=== PATIENT | female | born 1960 ===

== ENCOUNTER 2016-11-05 06:22 | Inpatient (IN) | payer BC, OTHER ==
[2016-10-30 15:00] VITALS: BMI 30.7
[2016-11-05] MEDS ORDERED: Lactated Ringer's 1,000 ML IV ONE ×2 (07:18→08:30)
[2016-11-05] MEDS ORDERED: Bupivacaine 0.25%-Epinephrine 1:200,000 (30 ml) Inj IJ ONE (08:50)
--- NOTE | 2016-11-05 10:35 | PCM.SURG1 ---
<Ashley Slaughter - Last Filed: 11/05/16 11:11> Surgeon's Initial Post Op Note - Surgeon's Notes Income Tax Advisor: cj romano md, Hailey Sukhjinder PGY1 <James Beltran - Last Filed: 11/05/16 17:34> Surgeon's Initial Post Op Note - Surgeon's Notes Surgeon: james beltran md Income Tax Advisor: cj romano md Type of Anesthesia: General Endo, Local Pre-Operative Diagnosis: Chronic pelvic pain. Proapse uterus. adnexal mass. fibroid uterus. Urinary incontinence Operative Findings: Detailed Operative Report. This is a 56 years old female with complex adnexal mass, long-standing history of uterine prolapse, urinary incontinence, chronic pelvic pain, associated fibroid uterus. The patient completed an extensive preoperative workup, which included an ultrasound, as well as a pap smear and an endometrial biopsy, chemistry and hematology studies. The patient reported these symptoms and problems as debilitating, and adversely affecting her quality of life. Following a period of failed conservative management, and patient decision was made to proceed with a more invasive approach to address the above noted problems. A decision was finally made to proceed with a total robotic assisted hysterectomy, bilateral salpingoophorectomy, excision of adnexal mass as well as vaginal vault suspension. A detailed description of this robotic procedure was given to the patient, all risks and benefits of the surgical modality was reviewed, printed material was also given to the patient regarding robotic surgery. The patient fully understood all the risks and benefits and elected to proceed with this proposed procedure. After proper consent was obtained from the patient was taken to the operating room, proper patient identification was completed. She was placed in dorsal lithotomy position; general anesthesia was induced without difficulty. Her legs were placed in adjustable Simba stirrups. Careful attention was placed not to over-flex or over-rotate the lower extremities at the hip or the knee joints. She was prepped and draped appropriately for robotic assisted hysterectomy, colpopexy and rectopexy. Seaman catheter was inserted under sterile conditions. A weighted speculum was placed in the vagina, anterior lip of cervix was grasped with a tenaculum, and a V-care uterine manipulator was inserted through the cervix and secured. The weighted speculum and tenaculum were removed from the patient's vagina and attention was turned to the patient's abdomen. Local anesthetic solutions of 0.25% Marcaine with epinephrine were utilized to infiltrate the skin prior to all abdominal skin incisions. A total of 15 mL of 0.25% Marcaine was utilized throughout the procedure. While tenting the abdominal wall, a Veres needle was inserted through the umbilicus and a pneumoperitoneum was obtained. Approximately at the umbilical fold, in the midline, a .08 cm incision was made with a scalpel and a trocar and sleeve were introduced. A robotic camera was inserted and an initial survey of the patient's abdomen revealed a large complex cystic mass. Anteverted prolapsed fibroid uterus moderate in size, Both ovaries appeared severely adherent to the pelvic sidewalls with distorted and adhering fallopian tubes. Extensive peritoneal and bowel adhesions was noted, likely from prior surgeries or previous intra-abdominal infections. The patient was placed in Trendelenburg position ready for a da Stanislaw robotic system to be docked. 3 robotic ports were utilized for this procedure. The first robotic port was placed on the patient's right side approximately 8 cm left lateral to the camera port, the second robotic port was placed 8 cm right lateral to the camera port and the third robotic port was placed approx. 8 cm lateral the second port and approximately 3 cm cephalic to the left superior iliac crest. All incisions were approximately 8 mm in length. An social media assistant port was placed 8 cm left lateral to the first robotic port. For the social media assistant and camera ports we utilized the Versa step trocar system. All trocars were inserted under direct visualization. The placement of the trocars was all accomplished under careful and meticulous placement under direct visualization. Following the placement of all trocars, the da Stanislaw robotic system was docked in a parallel fashion without difficulty. The following instruments were utilized for this procedure: the PK sealing and cautery device, a monopolar davonte and finally a ProGrasp. Meticulous and careful lysis of adhesions as well as enterolysis was accomplished utilizing the monopolar davonte and bipolar device. Following meticulous and careful dissection into the pelvic sidewall, both ureters were explored and visualized, peristalsis bilaterally. Prior to the hysterectomy it was necessary to address the adnexal mass. Pelvic washing was completed and sent to pathology. Meticulous sharp and blunt dissection isolated the pelvic mass intact and it was a nucleated without puncturing it without draining it into the pelvic cavity. The mass was placed in the abdominal cavity to be extracted following the hysterectomy. On the patient's right side, the IP and the round ligaments were identified cauterized and transected, the broad ligament was divided all the way down to the utero cervical junction bladder flap was then created by transecting the visceroperitoneum over the bladder reflection. In a similar fashion, the left round ligament, IP ligament and broad ligament were cauterized sealed and transected, taken down to the level of the cervical uterine junction. Uterine vessels on both sides were sealed and transected. The Uterosacral ligaments were sealed and transected. The monopolar davonte and PK were utilized to complete the colpotomy incision around the care vaginal ring. Excellent hemostasis was noted. The uterus, cervix, ovaries and fallopian tubes were delivered transvaginal through the colpotomy incision and sent to pathology for permanent analysis. Lastly, the pelvic mass was placed in an Endo Catch and removed via the vaginal colpotomy incision intact and sent to pathology. The colpotomy incision was closed with 2-0 v LOC in a continuous fashion with excellent hemostasis. The vaginal vault suspension was achieved by suspending the vaginal cuff to the base of the uterosacral ligaments bilaterally. For uterosacral ligament suspension portion of the procedure, the ureters were once again identified to avoid possible compromise or kinking while suspending the vaginal vault. A 2-0 permanent suture material ([place]-Louis) was utilized to suspend the uterosacral ligaments from the base to the vaginal vault cuff incision including both anterior and posterior aspect of the colpotomy incision. The abdomen was throughout irrigated and cleared of all clots and debris. FloSeal as well as Interceed was applied to the incision sites. Excellent hemostasis was again noted. All robotic and laparoscopic instruments removed under direct visualization. The robotic arms were undocked, and a da Stanislaw robotic system was wheeled away from the patient's bedside. Both social media assistant and camera ports were closed at the fascial layer utilizing a 2-0 Vicryl suture material in interrupted fashion. Pneumoperitoneum was reduced and all skin incisions were closed utilizing 4-0 Monocryl in a subcutaneous fashion. Dermabond was applied to all incisions. Due to the complexity of this hysterectomy and colpopexy, a diagnostic cystoscopy was completed. The Seaman catheter was removed; the bladder was distended with approximately 350 cc of normal saline. A 30 cystoscope was introduced and a survey of the bladder anatomy was completed. The base, and the dome of the bladder appeared normal, both ureteral orifices appeared normal and were efluxing urine freely. The urethra appeared normal. A Seaman catheter was reinserted. Vaginal packing was inserted to be removed the next morning. Patient emerged from general anesthesia without difficulty, and was taken to recovery room in stable condition. Prior to incision the patient received antibiotics, prior to closure sponge lap and needle counts were correct x2. Post-Operative Diagnosis: Chronic pelvic pain. Proapse uterus. adnexal mass. fibroid uterus. Urinary incontinence. umbilical hernia Operation Performed: Total robotic hysterectomy BSO. excision of large pelvic mass. Uterosacroligament suspenssion. umbilical hernia repair. cystoscopy Specimen/Specimens Removed: pelvic washing. uterus, cervix, tubes and ovaries. left adnexal cystic mass Estimated Blood Loss: EBL {In ML}: 20 Blood Products Given: N/A Drains Used: No Drains Post-Op Condition: Good Date of Surgery/Procedure: 11/05/16 Time of Surgery/Procedure: 10:35
[2016-11-05] MEDS ORDERED: Oxycodone/Acetaminophen 5/325 mg Tab PO PRN (10:39)
[2016-11-05] MEDS: HYDROmorphone 0.5 mg/0.5 ml ISec IVP PRN ×3 (11:00→11:30)
--- NOTE | 2016-11-05 21:49 | CP.PCM.CON ---
History of Present Illness - History of Present Illness History of Present Illness: Called by nursing because patient had low BP (SBP 80s) this evening. Went to assess patient. Patient comfortable, symptom free. No complaints. Patient was started on fluid bolus and put flat in bed, and BP improved to > 90s. Other VSS> Will have nurses f/u BP after bolus, if still low BP, may consider lab workup. The patient's primary physician was notified with this change in patient vitals Past Patient History - Past Medical History & Family History Past Medical History?: Yes - Past Social History Smoking Status: Never Smoked - CARDIAC Hx Cardiac Disorders: Yes Hx Hypercholesterolemia: Yes - PULMONARY Hx Respiratory Disorders: No - NEUROLOGICAL Hx Neurological Disorder: No - HEENT Hx HEENT Problems: No - RENAL Hx Chronic Kidney Disease: No - ENDOCRINE/METABOLIC Hx Endocrine Disorders: No - HEMATOLOGICAL/ONCOLOGICAL Hx Blood Disorders: No - INTEGUMENTARY Hx Dermatological Problems: No - MUSCULOSKELETAL/RHEUMATOLOGICAL Hx Musculoskeletal Disorders: Yes Hx Arthritis: Yes Hx Back Pain: Yes - GASTROINTESTINAL Hx Gastrointestinal Disorders: Yes Other/Comment: HEARTBURN - GENITOURINARY/GYNECOLOGICAL Hx Genitourinary Disorders: No - PSYCHIATRIC Hx Psychophysiologic Disorder: No - SURGICAL HISTORY Hx Surgeries: No - ANESTHESIA Hx Anesthesia: No Hx Anesthesia Reactions: No Hx Malignant Hyperthermia: No Has any member of the family had a problem w/ anesthesia?: No Meds Allergies/Adverse Reactions: Allergies Allergy/AdvReac Type Severity Reaction Status Date / Time No Known Allergies Allergy Verified 10/30/16 15:00 - Medications Medications: Current Medications Hydromorphone HCl (Dilaudid) 2 mg IVP Q3H PRN PRN Reason: Pain, severe (8-10) Lactated Ringer's (Lactated Ringer's) 1,000 mls @ 100 mls/hr IV .Q10H [facility] Ketorolac Tromethamine (Toradol) 30 mg IVP Q6H [facility] Last Admin: 11/05/16 15:48 Dose: 30 mg Ondansetron HCl (Zofran Inj) 4 mg IVP Q6 PRN PRN Reason: Nausea/Vomiting Oxycodone/Acetaminophen (Percocet 5/325 Mg Tab) 1 tab PO Q4H PRN PRN Reason: Pain, moderate (4-7) Stop: 11/08/16 10:40 Results - Vital Signs Recent Vital Signs: Last Vital Signs Temp 97 F L 11/05/16 16:05 Pulse 63 11/05/16 16:05 Resp 20 11/05/16 16:05 BP 100/67 11/05/16 16:05 Pulse Ox 97 11/05/16 16:05
[2016-11-05] MEDS: Lactated Ringer's 1,000 ML IV SCH (21:53)
[2016-11-05] MEDS ORDERED: Lactated Ringer's 1,000 ML IV SCH (22:00)
[2016-11-06] MEDS: Lactated Ringer's 1,000 ML IV SCH (05:35)
[2016-11-06 07:47] VITALS: RESP 20
[2016-11-06 08:00] LABS: BLOOD UREA NITROGEN 12 mg/dl (7-17); CALCIUM 8.5 mg/dL (8.4-10.2); CARBON DIOXIDE 27 mmol/L (22-30); CHLORIDE 108 mmol/L (98-107); GFR AFRICAN-AMERICAN > 60; GLUCOSE,RANDOM 92 mg/dL (65-105); POTASSIUM 3.7 MMOL/L (3.6-5.0); SODIUM 142 mmol/l (132-148)
[2016-11-06 08:10] LABS: HEMATOCRIT 31.2 % (34.0-47.0); MEAN CELL VOLUME 88.2 fl (81.0-99.0); MEAN CORPUSCULAR HEMOGLOBIN 29.5 pg (27.0-31.0); MEAN CORPUSCULAR HGB CONC 33.5 g/dL (33.0-37.0); RED CELL DISTRIBUTION WIDTH 13.8 % (11.5-14.5); WHITE BLOOD COUNT 6.4 K/uL (4.8-10.8)
[2016-11-06 13:54] VITALS: BP 107/58; PULSE 58; TEMP 98; O2SAT 98
== END 2016-11-06 14:59 | disposition home or self-care (01) | DRG 743 ==
LOC: H.OPSURG 06:22 → H.PEDS 10:39
PROVIDERS: ADMIT Obstetrics & Gynecology; ATTEND Obstetrics & Gynecology
PROC: 0UT2FZZ Resection of Bilateral Ovaries, Via Natural or Artificial Opening With Percutaneous Endoscopic Assistance (ICD-10-PCS; 2016-11-05)
PROC: 0USG4ZZ Reposition Vagina, Percutaneous Endoscopic Approach (ICD-10-PCS; 2016-11-05)
PROC: 0DNW4ZZ Release Peritoneum, Percutaneous Endoscopic Approach (ICD-10-PCS; 2016-11-05)
PROC: 0WQF4ZZ Repair Abdominal Wall, Percutaneous Endoscopic Approach (ICD-10-PCS; 2016-11-05)
PROC: 8E0W4CZ Robotic Assisted Procedure of Trunk Region, Percutaneous Endoscopic Approach (ICD-10-PCS; 2016-11-05)
PROC: 0TJB8ZZ Inspection of Bladder, Via Natural or Artificial Opening Endoscopic (ICD-10-PCS; 2016-11-05)
PROC: 0JBC3ZZ Excision of Pelvic Region Subcutaneous Tissue and Fascia, Percutaneous Approach (ICD-10-PCS; 2016-11-05)
PROC: 0UT9FZZ Resection of Uterus, Via Natural or Artificial Opening With Percutaneous Endoscopic Assistance (ICD-10-PCS; principal; 2016-11-05 07:45)
PROC: 0UT7FZZ Resection of Bilateral Fallopian Tubes, Via Natural or Artificial Opening With Percutaneous Endoscopic Assistance (ICD-10-PCS; 2016-11-05 07:45)
DX: N81.4 Uterovaginal prolapse, unspecified (principal); D25.9 Leiomyoma of uterus, unspecified; K42.9 Umbilical hernia without obstruction or gangrene; R19.00 Intra-abdominal and pelvic swelling, mass and lump, unspecified site; N73.6 Female pelvic peritoneal adhesions (postinfective); N39.41 Urge incontinence; N94.10 Unspecified dyspareunia

== ENCOUNTER 2017-05-27 10:10 | Inpatient (IN) | payer BC ==
[2017-05-16 07:24] VITALS: BMI 30.2
[2017-05-27] MEDS ORDERED: Propofol 10 mg/ml Inj (20 ML) ONE (12:14)
[2017-05-27] MEDS ORDERED: Midazolam 2 MG/2 ML VIAL ONE (12:15)
[2017-05-27] MEDS ORDERED: Succinylcholine 200 mg/10 ml Inj IV ONE (12:15)
[2017-05-27] MEDS ORDERED: Rocuronium 10 mg/ml (5 ml) ONE ×2 (12:15→14:18)
[2017-05-27] MEDS ORDERED: ceFAZolin IV 1 gm in Dextrose 2 GM/100 ML BAG IVPB ONE (12:23)
[2017-05-27] MEDS ORDERED: Bupivacaine 0.5% Inj(30mL) ONE (12:24)
[2017-05-27] MEDS ORDERED: Lactated Ringer's 1,000 ML IV ONE ×2 (14:02→14:03)
[2017-05-27] MEDS ORDERED: Sodium Chloride 0.9% 1,000 ML IV ONE (14:04)
[2017-05-27] MEDS ORDERED: APROTININ/FIBRINOGEN(TISSEEL) ONE (14:51)
[2017-05-27] MEDS ORDERED: SULFANILAMIDE (AVC) VAG CREAM VG ONE ×2 (15:43→15:45)
[2017-05-27] MEDS ORDERED: Oxycodone/Acetaminophen 5/325 mg Tab PO PRN (16:11)
--- NOTE | 2017-05-27 16:11 | PCM.SURG1 ---
Surgeon's Initial Post Op Note - Surgeon's Notes Surgeon: carmita beltran md Remote Sensing Scientist: deonte PADILLA Type of Anesthesia: General Endo, Local Pre-Operative Diagnosis: vaginal valut prolapse. chronic pelvic pain. urinary urgency. cystocele. rectocele Operative Findings: Advanced vaginal vault prolapse. Cystocele. Rectocele. Extensive adhesions from prior surgery Post-Operative Diagnosis: vaginal valut prolapse. chronic pelvic pain. urinary urgency. cystocele. rectocele. extensive intrapelvic adhessions Operation Performed: robotic sacrocolpopexy. Extensive lysis of adhessions. Cystoscopy Specimen/Specimens Removed: none Estimated Blood Loss: EBL {In ML}: 5 Blood Products Given: N/A Drains Used: No Drains Post-Op Condition: Good Date of Surgery/Procedure: 05/27/17 Time of Surgery/Procedure: 16:11
[2017-05-27] MEDS ORDERED: Lactated Ringer's 1,000 ML IV SCH ×2 (16:15→16:30)
[2017-05-27] MEDS: HYDROmorphone 0.5 mg/0.5 ml ISec IVP PRN ×4 (16:22→16:58)
[2017-05-27] MEDS ORDERED: ceFAZolin IV 2 gm in Dextrose 2 GM/50 ML BAG IVPB SCH (17:00)
[2017-05-27 19:34] LABS: HEMOGLOBIN 11.5 g/dL (12.0-16.0); MEAN CELL VOLUME 89.4 fl (81.0-99.0); MEAN CORPUSCULAR HEMOGLOBIN 29.1 pg (27.0-31.0); MEAN CORPUSCULAR HGB CONC 32.6 g/dL (33.0-37.0); RBC 3.94 Mil/uL (3.80-5.20); RED CELL DISTRIBUTION WIDTH 14.2 % (11.5-14.5); WHITE BLOOD COUNT 10.6 K/uL (4.8-10.8)
[2017-05-27] MEDS: Sodium Chloride 0.9% 1,000 ML IV SCH (20:15)
--- NOTE | 2017-05-27 21:25 | PCM.OP ---
Operative Report - Operative Report Date of Surgery/Procedure: 05/27/17 Time of Surgery/Procedure: 17:00 Surgeon: James Aguilar MD Windows Administrator: Karen PADILLA Anesthesia/Sedation: Gen. with ET tube Pre-Operative Diagnosis: Vaginal vault prolapse. Chronic pelvic pain. Urinary urgency. Cystocele. Rectocele Post-Operative Diagnosis: Vaginal vault prolapse. Chronic pelvic pain. Urinary urgency. Cystocele. Rectocele. Extensive intrapelvic adhessions Indication for Surgery: worsening vaginal vault prolapse, chronic pelvic pain, dyspareunia and urinary urgency Operative Findings: advanced vaginal vault prolapse predominant apical prolapse as well as cystocele and rectocele. Advanced and extensive pelvic adhesions from prior surgeries. Normal bladder and ureters noted at the end of the procedure during a diagnostic cystoscopy. Procedure/Operation Description: Detailed operative report. This is a 57 years old female with long-standing and worsening symptoms of pelvic pain and vaginal vault prolapse, associated cystocele and rectocele, and finally severe dyspareunia. The patient is reporting a vaginal bulge and pressure worsening over time. The patient reported these symptoms to be debilitating and adversely affecting her quality of life. The patient is reporting a vaginal bulge which is growing over time; it is the source of her major concern and discomfort during sexual activity. The patient completed a robotic hysterectomy last year for severe uterine prolapse, elected not to utilize any synthetic graft or mesh material at the time, and colposuspension was accomplished utilizing uterosacral ligament suspension only. The patient had a long period of failed conservative management. Following the complete workup, a long discussion of surgical vs other conservative was completed. A decision was made to proceed with a robotic assisted Sacrocolpopexy using synthetic mesh material. After a detailed discussion about the pros and cons of using polypropylene mesh for the sacrocolpopexy, all benefits and risks were reviewed including but not limited to the risk of infection, mesh erosion / extrusion, chronic pain and dyspareunia. In addition, the FDA warning about mesh utilization for prolapse and incontinence surgery was reviewed in details, and specific written consent was obtained. The patient elected to proceed with a robotic sacrocolpopexy today fully understanding the risk associated with utilizing mesh material. Other alternatives were also offered to the patient, she elected to proceed with a mesh sacrocolpopexy despite associated risks. After proper consent was obtained from the patient, patient was taken to the operating room where general anesthesia was obtained without difficulty. She was placed in the dorsal lithotomy position, her legs were placed in adjustable Simba stirrups, and careful attention was placed not to over-flex or over- rotate the lower extremities. Seaman catheter was inserted under sterile conditions. She was prepped and draped appropriately for a robotic sacrocolpopexy. Examination under anesthesia revealed a widened introitus with a third degree cystourethrocele and epical vaginal vault prolapse. After appropriate prep, the patient was draped in the usual manner for robotic surgery. A sponge stick was placed in the patient's vagina to aid in manipulation during the procedure. Attention was turned to the patient's abdomen. Local anesthetic solutions of 0.25% Marcaine with epinephrine were utilized to infiltrate the skin prior to all abdominal skin incisions. A total of 15 mL of 0.25% Marcaine was utilized throughout the procedure. While tenting the abdominal wall, a Veres needle was inserted through the umbilicus and a pneumoperitoneum was obtained. Approximately 3 cm above the umbilical fold, in the midline, a 1 cm incision was made with a scalpel and a trocar and sleeve were introduced. A robotic camera was inserted and an initial survey of the patient's abdomen revealed an absent uterus ovaries and fallopian tubes consistent with prior hysterectomy. Extensive intra-abdominal and pelvic adhesions were noted likely from prior surgeries. The patient was placed in Trendelenburg position ready for a da Stanislaw robotic system to be docked. 3 robotic ports were utilized for this procedure. The first robotic port was placed on the patient's left side approximately 5 cm superior to the superior crest on the patient's left side, the second robotic port was placed 8 cm right lateral to the camera port and the third robotic port was placed approx. 5 centimeters superior to the right superior iliac crest. All ports were aligned along the same horizontal line on the abdomen in an arch like fashion. An family services assistant port was placed 8 cm left lateral to the camera port in the midline. For the family services assistant port we utilized the Versa step trocar system. All trocars were inserted under direct visualization. The placement of the trocars was all accomplished under careful and meticulous placement under direct visualization. Following the placement of all trocars, the da Stanislaw robotic system was docked in a parallel method without difficulty. The following instruments were utilized for this procedure: the bipolar cautery device, a monopolar davonte and finally a ProGrasp. Prior to the start of the sacrocolpopexy, both ureters and their courses had to be visualized. The dense adhesions, peritoneal and bowel adhesions, extensive lysis of adhesions was necessary including exploration of both ureters to ascertain safety of both ureters during the procedure specifically on the patient's RIGHT side as the pericolic gutter peritoneal incision was in close proximity to dense adhesions and ureter. Attention was then turned to the presacral space. The peritoneum overlying it was tented upward and incised sagittally all the way down to the posterior vaginal wall keeping the right ureter in view at all times. The longitudinal ligament over the scarum was cleared and ready for the anchoring of the long arm of the Y mesh. The posterior vaginal wall was dissected free from the rectum and peritoneum using monopolar Endoshears. Two obturators had been placed , one in the vagina, one in the rectum, to assist with this dissection. The dissection was carried out to 5 cm from the vaginal apex. A similar dissection was carried out anteriorly with the same technique, noting the bladder away from the colpotomy incision, making the anterior vaginal wall free of bladder and ready for attachment of the Y. mesh anteriorly. Excellent hemostasis was noted. A Y mesh was placed into the peritoneal cavity. The short posterior arm of the Y mesh was anchored with 6 interrupted CV-2 [place]-Louis sutures to the posterior vaginal wall. The second short anterior arm of the Y mesh was sutured to the anterior vaginal wall with 7 interrupted CV-2 sutures. Pelvic exam was performed by the bedside family services assistant to lift the vagina into the pelvic cavity to approximate the full length of the vagina in a tension-free fashion. The long arm of the Ymesh was anchored to the anterior longitudinal ligament with 3 interrupted CV-2 [place]-Louis sutures. The peritoneum was then closed with running 2 -0 monocryl. The pelvis was irrigated copiously and freed of all clots and debris. Excellent hemostasis was noted. The abdomen was throughout irrigated and cleared of all clots and debris. FloSeal was applied to the incision sites. Excellent hemostasis was again noted. All robotic and laparoscopic instruments removed under direct visualization. The robotic arms were undocked , and a [employer] robotic system was wheeled away from the patient's bedside. Both family services assistant and camera ports were closed at the fascial layer utilizing a 2- 0 Vicryl suture material in interrupted fashion. Pneumoperitoneum was reduced. The fascia was closed with o Vicryl and the skin was closed with a 4-0 monocryl in subQ fashion. Dermabond was applied to all incisions. (The anterior vaginal wall over the midurethral area was grasped with a pair of Allis clamps and tenting the vaginal wall from the underlying urethra. Local anesthetic solution of 0.25% Marcaine with epinephrine diluted 1:1 was used to infiltrate the periurethral space. A total of 20 cc was utilized. Using a scalpel, a midurethral vertical incision about 1 cm was made through the vaginal epithelium and periurethral fascia. Careful lateral sharp dissection using Metzenbaum scissors towards the inferior pubic ramus to eventually allow the sling graft to lie flat against the urethra. Next, the sling mesh was loaded onto the needle tip. The needle tip was inserted through one side of the incision towards the medial edge of the obturator foramen approximately 45 degrees of the horizontal plane. Using an arching helical motion, the needle tip was advanced through pushing the obturator internus muscle. The needle was released from the graft and loaded on the other side of the sling ready for deployment to the contralateral side. Ensuring the sling is flat on the urethra and not twisted, the needle was advanced in an arching motion towards the obturator internus muscle on the opposite site. Attention was readdressed to allow a flat placement with tension- free sling on the midurethra. Following saline irrigation and good hemostasis was noted, the vaginal mucosa was closed with 2-0 Vicryl in a locking fashion.). At the conclusion of this procedure, a diagnostic cystoscopy was completed. The Seaman catheter was removed; the bladder was distended with approximately 350 cc of normal saline. A 30 cystoscope was introduced and a survey of the bladder anatomy was completed. The base, and the dome of the bladder appeared normal, both ureteral orifices appeared normal and were efluxing urine freely. The urethra appeared normal. A Seaman catheter was reinserted. Vaginal packing was inserted to be removed the next morning. Patient emerged from general anesthesia without difficulty, and was taken to recovery room in stable condition. Prior to incision the patient received antibiotics, prior to closure sponge lap and needle counts were correct x2. Estimated Blood Loss: 10 Blood Replaced: none Sponge/Instrument Count: sponge lap and needle counts were correct x2 Drains: none Complications: none Specimen: none Discharge & Condition: patient discharged home postoperative day when criteria met
[2017-05-27] MEDS: ceFAZolin IV 2 gm in Dextrose 2 GM/50 ML BAG IVPB SCH (22:06)
[2017-05-28] MEDS: Sodium Chloride 0.9% 1,000 ML IV SCH (01:56)
[2017-05-28] MEDS: ceFAZolin IV 2 gm in Dextrose 2 GM/50 ML BAG IVPB SCH (06:02)
[2017-05-28 06:26] LABS: HEMOGLOBIN 10.8 g/dL (12.0-16.0); MEAN CELL VOLUME 89.4 fl (81.0-99.0); MEAN CORPUSCULAR HEMOGLOBIN 29.7 pg (27.0-31.0); MEAN CORPUSCULAR HGB CONC 33.3 g/dL (33.0-37.0); RBC 3.64 Mil/uL (3.80-5.20); RED CELL DISTRIBUTION WIDTH 14.4 % (11.5-14.5); WHITE BLOOD COUNT 8.4 K/uL (4.8-10.8)
[2017-05-28 06:42] LABS: BLOOD UREA NITROGEN 12 mg/dl (7-17); CALCIUM 8.5 mg/dL (8.4-10.2); GFR AFRICAN-AMERICAN > 60; GFR NON-AFRICAN AMERICAN > 60
[2017-05-28 11:11] VITALS: RESP 16; TEMP 98.4
--- NOTE | 2017-05-28 14:44 | CP.PCM.PN ---
Subjective - Date & Time of Evaluation Date of Evaluation: 05/28/17 Time of Evaluation: 14:44 - Subjective Subjective: Patient states pain is well controlled. +void, packing was falling out and removed by nurse, no bleeding noted. Denies CP/SOB/dizziness. Objective - Vital Signs/Intake and Output Vital Signs (last 24 hours): Temp Pulse Resp BP Pulse Ox 98.4 F 62 16 102/58 L 98 05/28/17 09:00 05/28/17 09:00 05/28/17 09:00 05/28/17 09:00 05/28/17 09:00 Intake and Output: 05/28/17 05/28/17 06:59 18:59 Intake Total 2860 Output Total 2050 Balance 810 - Medications Medications: Current Medications Hydromorphone HCl (Dilaudid) 2 mg IVP Q3H PRN PRN Reason: Pain, severe (8-10) Lactated Ringer's (Lactated Ringer's) 1,000 mls @ 100 mls/hr IV .Q10H VERONA Lactated Ringer's (Lactated Ringer's) 1,000 mls @ 100 mls/hr IV .Q10H VERONA Sodium Chloride (Sodium Chloride 0.9%) 1,000 mls @ 125 mls/hr IV .Q8H VERONA Stop: 05/28/17 20:00 Last Admin: 05/28/17 01:56 Dose: 125 mls/hr Cefazolin Sodium/Dextrose (Ancef Iv 2 Gm Duplex) 2 gm in 50 mls @ 50 mls/hr IVPB Q8@0600,1400,2200 VERONA PRN Reason: Protocol Last Admin: 05/28/17 06:02 Dose: 50 mls/hr Ketorolac Tromethamine (Toradol) 30 mg IVP Q6H VERONA Last Admin: 05/28/17 10:00 Dose: 30 mg Ondansetron HCl (Zofran Inj) 4 mg IVP Q6 PRN PRN Reason: Nausea/Vomiting Last Admin: 05/27/17 23:41 Dose: 4 mg Oxycodone/Acetaminophen (Percocet 5/325 Mg Tab) 2 tab PO Q4H PRN PRN Reason: Pain, moderate (4-7) Stop: 05/30/17 16:12 - Labs Labs: 05/28/17 05:50 05/28/17 05:50 - Constitutional Appears: Well, No Acute Distress - GI/Abdominal Exam GI & Abdominal Exam: Soft Additional comments: non distended, incisions intact, dry, minimally tender - Neurological Exam Neurological Exam: Alert, Awake, Oriented x3 - Psychiatric Exam Psychiatric exam: Normal Mood - Skin Skin Exam: Dry, Intact, Normal Color, Warm Assessment and Plan (1) Vaginal vault prolapse Assessment & Plan: POD#1 s/p robotic assisted sacrocolpopexy -d/c home today -rx percocet -[place] [employer] patient report reviewed, last narcotic pain medication 10/2016. Patient takes ambien regularly, rx monthly. Patient counseled on the risks of addiction , physical or psychological dependence, and overdose associated with opioid drugs and the danger of taking opioid drugs with alcohol and other central nervous system depressants, and cautioned patient on storage and disposal. -f/u 2 weeks call for apt -rec colace while taking percocet -activity as tolerated -d/w Dr. Aguilar, agrees with above Status: Acute (2) Chronic pelvic pain in female Status: Acute (3) Urinary urgency Status: Acute (4) Cystocele Status: Acute (5) Rectocele Status: Acute (6) Pelvic adhesions Status: Acute
[2017-05-28 15:23] VITALS: BP 102/64; PULSE 68; O2SAT 99
== END 2017-05-28 15:30 | disposition home or self-care (01) | DRG 748 ==
LOC: H.OPSURG 10:10 → H.PEDS 16:11
PROVIDERS: ADMIT Obstetrics & Gynecology; ATTEND Obstetrics & Gynecology
PROC: 0DNW4ZZ Release Peritoneum, Percutaneous Endoscopic Approach (ICD-10-PCS; 2017-05-27)
PROC: 0DNE4ZZ Release Large Intestine, Percutaneous Endoscopic Approach (ICD-10-PCS; 2017-05-27)
PROC: 0UUG4JZ Supplement Vagina with Synthetic Substitute, Percutaneous Endoscopic Approach (ICD-10-PCS; 2017-05-27)
PROC: 8E0W4CZ Robotic Assisted Procedure of Trunk Region, Percutaneous Endoscopic Approach (ICD-10-PCS; 2017-05-27)
PROC: 0TJB8ZZ Inspection of Bladder, Via Natural or Artificial Opening Endoscopic (ICD-10-PCS; principal; 2017-05-27 12:00)
PROC: 0USG4ZZ Reposition Vagina, Percutaneous Endoscopic Approach (ICD-10-PCS; 2017-05-27 12:00)
DX: N99.3 Prolapse of vaginal vault after hysterectomy (principal); N73.6 Female pelvic peritoneal adhesions (postinfective); N81.6 Rectocele; R39.15 Urgency of urination; N94.10 Unspecified dyspareunia